=== PATIENT | female | born 1945 | race Native Hawaiian/Other Pacific Islander ===

== ENCOUNTER 2021-02-27 09:39 | Outpatient (CLI) | payer OTHER, MEDICARE ==
[~2021-02-27 09:39] MED LIST: ACET-689 PO; CALCIUM + D600 MG PO; CITALOPRAM40 MG PO; FLUTICASONE50 MCG; NIRAVAM1 MG PO; VERA240T17 PO; XANAX XR1 MG PO; ZESTRIL40 MG PO
== END 2021-02-27 18:58 | disposition home or self-care (01) ==
LOC: RAD 09:39
PROVIDERS: ATTEND Internal Medicine
DX: Z13.820 Encounter for screening for osteoporosis (principal); N95.8 Other specified menopausal and perimenopausal disorders

== ENCOUNTER 2022-08-27 11:02 | Outpatient (CLI) | payer OTHER, MEDICARE | END 2022-08-27 19:06 | disposition home or self-care (01) | LOC: MAMMO 11:02 | PROVIDERS: ATTEND Internal Medicine | DX: Z12.31 Encounter for screening mammogram for malignant neoplasm of breast (principal) ==